=== PATIENT | male | born 1960 | race Caucasian/White ===

== ENCOUNTER 2024-07-09 08:41 | Emergency (ER) | payer OTHER ==
[2024-07-09] MEDS ORDERED: Sodium Chloride 0.9% 10 ML Syringe FLUSH PRN (09:07)
[2024-07-09] MEDS: Sodium Chloride 0.9% 1,000 ML IV SCH (09:22)
[2024-07-09 09:24] LABS: HEMATOCRIT 45.1 % (40.0-54.0); HEMOGLOBIN 15.6 g/dL (13.0-18.0); MEAN CORPUSCULAR HGB CONC 34.6 g/dL (31.0-35.0); MEAN PLATELET VOLUME 10.2 fL (6.0-10.0); RED BLOOD CELL COUNT 5.03 M/uL (4.50-6.50); RED CELL DISTRIBUTION WIDTH 12.6 % (11.0-16.0); WHITE BLOOD CELL COUNT,WBC 4.3 K/uL (4.0-11.0)
[2024-07-09 09:52] LABS: A/G RATIO 1.1 (0.8-2.0); ALBUMIN 3.8 g/dL (3.4-5.0); ANION GAP 12.6 mmol/L (5.0-15.0); BILIRUBIN TOTAL 0.5 mg/dL (0.0-1.0); BUN/CREATININE RATIO 15.2 (6-25); C-REACTIVE PROTEIN 30.8 mg/L (<5.0); CALCIUM 8.3 mg/dL (8.5-10.1); CREATININE 1.25 mg/dL (0.70-1.30); EST CRCL DRUG DOSING (CG) 62.46 mL/min; POTASSIUM,K 3.6 mmol/L (3.5-5.1); PROTEIN TOTAL,TP 7.4 g/dL (6.4-8.2)
[2024-07-09 14:08] VITALS: BP 144/99; PULSE 73
== END 2024-07-09 10:35 | disposition home or self-care (01) ==
LOC: LB.ED 08:41
DX: K52.9 Noninfective gastroenteritis and colitis, unspecified (principal); Z79.899 Other long term (current) drug therapy
CPT/HCPCS: 36415; 74176; 80053; 83690; 85027; 86140; 96360; 99284; 99284-25; J7030